=== PATIENT | male | born 1955 | race Caucasian/White ===

== ENCOUNTER → 2020-12-19 | Outpatient (CLI) | payer MEDICAID, OTHER ==
[~2020-12-19] MED LIST: ASCO500T8 PO; ASPI81TA45 PO; GLUC1CAP50 PO; L.AC1CAP6 PO; MAGN300C PO; MULT-257 PO; OMEG1CAP23 PO; OMEG1CAP34 PO; OMEP-110 PO; ZINC220T2 PO
== END | disposition home or self-care (01) ==
LOC: CFH 10:15
PROVIDERS: ATTEND Family Medicine
DX: Z13.6 Encounter for screening for cardiovascular disorders (principal); I25.810 Atherosclerosis of coronary artery bypass graft(s) without angina pectoris
CPT/HCPCS: 75571